=== PATIENT | male | born 1965 | race African-American/Black ===

== ENCOUNTER 2021-12-18 16:24 | Inpatient (IN) | payer OTHER ==
[2021-12-18 18:33] VITALS: BMI 21.6
[2021-12-18] MEDS ORDERED: MAG HYDROX/AL HYDROX/SIMETH 30 ML UNIT-DOSE CUP PO PRN (19:51)
[2021-12-18] MEDS ORDERED: ONDANSETRON *ODT* 4 MG TABLET SL PRN (19:51)
[2021-12-18] MEDS ORDERED: LOPERAMIDE HCL 2 MG CAPSULE PO PRN (19:51)
[2021-12-18] MEDS ORDERED: BENZOCAINE/MENTHOL (CHLORASEPTIC ) LOZENGE MM PRN (19:51)
[2021-12-18] MEDS ORDERED: IBUPROFEN 600 MG TABLET (FP) PO PRN (19:51)
[2021-12-18] MEDS ORDERED: MAGNESIUM CITRATE 300 ML BOTTLE PO PRN (19:51)
[2021-12-18] MEDS ORDERED: MAGNESIUM HYDROX 2400MG/30ML ORAL SUSPENSION 30 ML CUP PO PRN (19:51)
[2021-12-18] MEDS ORDERED: NICOTINE POLACRILEX 2 MG GUM BUC PRN (19:51)
[2021-12-18] MEDS ORDERED: BISMUTH SUBSALICYLATE 524 MG/30 ML PO PRN (19:51)
[2021-12-18] MEDS ORDERED: ACETAMINOPHEN 325 MG TABLET (FP) PO PRN ×2 (19:51)
[2021-12-18] MEDS ORDERED: DICYCLOMINE HCL 10 MG CAPSULE PO PRN (19:51)
[2021-12-18] MEDS ORDERED: IBUPROFEN 400 MG TABLET (FP) PO PRN (19:51)
[2021-12-18] MEDS: hydrOXYzine PAMOATE 25 MG CAPSULE (FP) PO SCH (22:52)
[2021-12-18] MEDS: THIAMINE HCL 100 MG TABLET (FP) PO SCH (22:52)
[2021-12-18] MEDS: MELATONIN 5 MG TABLETS PO SCH (22:52)
[2021-12-19] MEDS: hydrOXYzine PAMOATE 25 MG CAPSULE (FP) PO SCH ×5 (06:04→22:41)
[2021-12-19] MEDS: METHOCARBAMOL 500 MG TABLET PO PRN (10:17)
[2021-12-19] MEDS: PRENATAL VITAMINS W/ FOLIC ACID TABLET (FP) PO SCH (10:17)
[2021-12-19] MEDS ORDERED: methaDONE HCL 10 MG TABLET (FOR DETOX USE ONLY) PO ONE (10:20)
[2021-12-19 10:27] LABS: HEMATOCRIT 33.2 % (35.4-49); HEMOGLOBIN 11.3 GM/dL (11.7-16.9); MCH 27.6 pg (25.7-33.7); MEAN CELL VOLUME 81.1 fl (80-96); MEAN PLT VOLUME 8.7 fl (7.5-11.1); PLATELET COUNT 170 10^3/uL (134-434); RBC 4.09 M/mm3 (4.00-5.60); RDW 15.6 % (11.9-15.9); WHITE BLOOD COUNT 3.9 K/mm3 (4.0-10.0)
[2021-12-19 11:26] LABS: CALCIUM 8.5 mg/dL (8.5-10.1)
[2021-12-19 11:27] LABS: ALBUMIN 3.1 g/dl (3.4-5.0); BLOOD UREA NITROGEN 20.3 mg/dL (7-18)
[2021-12-19 11:30] LABS: CREATININE 1.2 mg/dL (0.55-1.3)
[2021-12-19 11:31] LABS: BILIRUBIN,TOTAL 0.2 mg/dL (0.2-1)
[2021-12-19] MEDS: EMTRICITABINE/TENOFOV ALAFENAM (DESCOVY) TABLET PO SCH (12:14)
[2021-12-19] MEDS: cloNIDine HCL 0.1 MG TABLET PO PRN (14:59)
[2021-12-19] MEDS: THIAMINE HCL 100 MG TABLET (FP) PO SCH (22:41)
[2021-12-19] MEDS: MELATONIN 5 MG TABLETS PO SCH (22:41)
[2021-12-19] MEDS: MIRTAZAPINE 15 MG TABLET (FP) PO SCH (22:41)
[2021-12-20] MEDS: hydrOXYzine PAMOATE 25 MG CAPSULE (FP) PO SCH ×5 (06:24→23:04)
[2021-12-20] MEDS: PRENATAL VITAMINS W/ FOLIC ACID TABLET (FP) PO SCH (10:44)
[2021-12-20] MEDS: METHOCARBAMOL 500 MG TABLET PO PRN (10:44)
[2021-12-20] MEDS: cloNIDine HCL 0.1 MG TABLET PO PRN (10:44)
[2021-12-20] MEDS: EMTRICITABINE/TENOFOV ALAFENAM (DESCOVY) TABLET PO SCH (10:45)
[2021-12-20] MEDS: THIAMINE HCL 100 MG TABLET (FP) PO SCH (23:03)
[2021-12-20] MEDS: MIRTAZAPINE 15 MG TABLET (FP) PO SCH (23:03)
[2021-12-20] MEDS: MELATONIN 5 MG TABLETS PO SCH (23:05)
[2021-12-21] MEDS: hydrOXYzine PAMOATE 25 MG CAPSULE (FP) PO SCH ×5 (06:54→22:16)
[2021-12-21] MEDS ORDERED: methaDONE HCL 10 MG TABLET (FOR DETOX USE ONLY) PO ONE (10:00)
[2021-12-21] MEDS: METHOCARBAMOL 500 MG TABLET PO PRN (10:45)
[2021-12-21] MEDS: PRENATAL VITAMINS W/ FOLIC ACID TABLET (FP) PO SCH (10:45)
[2021-12-21] MEDS: EMTRICITABINE/TENOFOV ALAFENAM (DESCOVY) TABLET PO SCH (10:46)
[2021-12-21] MEDS: MIRTAZAPINE 15 MG TABLET (FP) PO SCH (22:16)
[2021-12-21] MEDS: MELATONIN 5 MG TABLETS PO SCH (22:16)
[2021-12-21] MEDS: THIAMINE HCL 100 MG TABLET (FP) PO SCH (22:16)
[2021-12-22] MEDS: hydrOXYzine PAMOATE 25 MG CAPSULE (FP) PO SCH ×5 (06:34→22:29)
[2021-12-22] MEDS: PRENATAL VITAMINS W/ FOLIC ACID TABLET (FP) PO SCH (10:20)
[2021-12-22] MEDS: EMTRICITABINE/TENOFOV ALAFENAM (DESCOVY) TABLET PO SCH (10:20)
[2021-12-22] MEDS: MIRTAZAPINE 15 MG TABLET (FP) PO SCH (22:28)
[2021-12-22] MEDS: THIAMINE HCL 100 MG TABLET (FP) PO SCH (22:28)
[2021-12-22] MEDS: MELATONIN 5 MG TABLETS PO SCH (22:28)
[2021-12-23] MEDS: METHOCARBAMOL 500 MG TABLET PO PRN (06:08)
[2021-12-23] MEDS: hydrOXYzine PAMOATE 25 MG CAPSULE (FP) PO SCH ×5 (06:08→22:25)
[2021-12-23] MEDS: PRENATAL VITAMINS W/ FOLIC ACID TABLET (FP) PO SCH (09:45)
[2021-12-23] MEDS: EMTRICITABINE/TENOFOV ALAFENAM (DESCOVY) TABLET PO SCH (09:45)
[2021-12-23] MEDS ORDERED: methaDONE HCL 10 MG TABLET (FOR DETOX USE ONLY) PO ONE (10:00)
[2021-12-23 17:19] VITALS: RESP 18
[2021-12-23] MEDS: MELATONIN 5 MG TABLETS PO SCH (22:25)
[2021-12-23] MEDS: MIRTAZAPINE 15 MG TABLET (FP) PO SCH (22:25)
[2021-12-23] MEDS: THIAMINE HCL 100 MG TABLET (FP) PO SCH (22:25)
[2021-12-24] MEDS: hydrOXYzine PAMOATE 25 MG CAPSULE (FP) PO SCH (05:35)
[2021-12-24 06:27] VITALS: BP 122/76; PULSE 69; TEMP 97.1
== END 2021-12-24 08:12 | disposition home or self-care (01) | DRG 773 ==
LOC: YASAS 16:24 → Y6N 20:32 → UNDOADMIN 20:32 → Y6N 20:33
PROVIDERS: ADMIT Allergy & Immunology; ATTEND Allergy & Immunology
PROC: HZ2ZZZZ Detoxification Services for Substance Abuse Treatment (ICD-10-PCS; principal; 2021-12-18)
DX: F11.23 Opioid dependence with withdrawal (principal); F14.20 Cocaine dependence, uncomplicated; F17.210 Nicotine dependence, cigarettes, uncomplicated; F19.282 Other psychoactive substance dependence with psychoactive substance-induced sleep disorder; F34.1 Dysthymic disorder; Z21 Asymptomatic human immunodeficiency virus [HIV] infection status; D64.9 Anemia, unspecified; K74.60 Unspecified cirrhosis of liver
CPT/HCPCS: 36415; 80053; 85027; 86780; 87811; C9803-CS; J0735; Q0162; U0003; U0005